=== PATIENT | male | born 1965 | race Caucasian/White ===

== ENCOUNTER 2018-02-11 05:42 | Emergency (ER) | payer BC ==
[2018-02-11] MEDS ORDERED: Ondansetron 4 MG/2 ML SDV IVPUSH ONE ×2 (05:54→06:04)
[2018-02-11] MEDS ORDERED: Sodium Chloride 0.9% 1,000 ML IV ONE (05:54)
[2018-02-11] MEDS ORDERED: diphenhydrAMINE 50 MG/ML SDV IVPUSH ONE (05:57)
--- NOTE | 2018-02-11 06:04 | EDM.PDOC ---
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 Also has some dizziness. Stopped here for some relief. Says he noticed around 1 am today that he wanted to veer off in one direction when he walked, only later did he develop the nausea and vomiting. His only medication is OTC Zantac. Onset: Today Onset Date: 02/11/18 Onset Time: 01:00 Duration: Hour(s):, Getting Worse Location: Reports: Head Quality: Reports: Other (no pain) Severity: Moderate Improves with: Reports: None Worsens with: Reports: None Context: Reports: Other (unknown) Associated Symptoms: Reports: Nausea/Vomiting, Other (dizziness) Treatments [employer]: Reports: Other (see below) (none) - Related Data Allergies Allergy/AdvReac Type Severity Reaction Status Date / Time No Known Allergies Allergy Verified 02/11/18 05:49 Home Meds: Home Meds Ranitidine HCl [Zantac 75] 75 mg PO DAILY 02/11/18 [History] Past Medical History Cardiovascular History: Reports: Hypertension Gastrointestinal History: Reports: GERD Genitourinary History: Reports: Other (See Below) Other Genitourinary History: scrotal injury requiring surgery Social & Family History - Tobacco Use Smoking Status *Q: Never Smoker - Alcohol Use Days Per Week of Alcohol Use: 1 Number of Drinks Per Day: 1 Total Drinks Per Week: 1 Date of Last Drink: 02/09/18 - Recreational Drug Use Recreational Drug Use: No ED ROS GENERAL - Review of Systems Review Of Systems: See Below Constitutional: Reports: Decreased Appetite HEENT: Reports: No Symptoms Respiratory: Reports: No Symptoms Cardiovascular: Reports: No Symptoms GI/Abdominal: Reports: Decreased Appetite, Distension, Hematemesis, Hematochezia , Nausea, Vomiting. Denies: Black Stool, Bloody Stool, Constipation, Diarrhea, Melena : Reports: No Symptoms Musculoskeletal: Reports: No Symptoms Skin: Reports: No Symptoms Neurological: Reports: Dizziness Psychiatric: Reports: No Symptoms ED EXAM, GI/ABD - Physical Exam Exam: See Below Exam Limited By: No Limitations General Appearance: Alert, WD/WN, No Apparent Distress Eyes: Bilateral: Normal Appearance, Nystagmus (nystagmus is subtle, hard to tell direction of the fast component. Seems present also on upward gaze. ) Ears: Normal External Exam, Normal Canal, Hearing Grossly Normal, Normal TMs Nose: Normal Inspection, Normal Mucosa, No Blood Throat/Mouth: Normal Inspection, Normal Oropharynx, Normal Voice, No Airway Compromise Head: Atraumatic, Normocephalic Neck: Normal Inspection Respiratory/Chest: No Respiratory Distress, Lungs Clear, Normal Breath Sounds, No Accessory Muscle Use Cardiovascular: Regular Rate, Rhythm, No Edema GI/Abdominal Exam: Normal Bowel Sounds, Soft, Non-Tender Extremities: Normal Inspection, Normal Range of Motion, Non-Tender Neurological: Alert, Oriented, CN II-XII Intact, Normal Cognition, No Motor/ Sensory Deficits, Other (finger to nose testing is WNL) Psychiatric: Normal Affect (Finger to nose testing OK.), Normal Mood Skin Exam: Warm, Dry, Intact, Normal Color, No Rash, Diaphoretic Lymphatic: No Adenopathy Course - Vital Signs Text/Narrative:: Case discussed with a [place] neurologist @ [facility], MRI suggested, not available this morning. Minimal benefit from Zofran, diphenhydramine, and Ativan(Valium not available). HINTS test seems normal. Concern about cerebellar CVA persists, will transfer to [facility] Last Recorded V/S: Last Vital Signs Temp 35.2 C 02/11/18 05:47 Pulse 71 02/11/18 06:30 Resp 26 H 02/11/18 06:30 BP 133/82 02/11/18 06:30 Pulse Ox 93 L 02/11/18 06:30 - Orders/Labs/Meds Orders: Active Orders 24 hr Category Date Time Status Cardiac Monitoring [RC] .As Directed Care 02/11/18 06:10 Active Brain wo Cont [MR] Stat Exams 02/11/18 06:44 Ordered Lactated Ringers [Ringers, Lactated] 1,000 ml Med 02/11/18 07:00 Active IV ASDIRECTED Medication Orders Lactated Ringer's (Ringers, Lactated) 1,000 mls @ 125 mls/hr IV ASDIRECTED THU Last Admin: 02/11/18 07:14 Dose: 125 mls/hr Labs: Laboratory Tests 02/11/18 Range/Units 06:07 Sodium 139 L (140-148) mmol/L Potassium 3.5 L (3.6-5.2) mmol/L Chloride 103 (100-108) mmol/L Carbon Dioxide 23 (21-32) mmol/L Anion Gap 16.5 H (5.0-14.0) mmol/L BUN 14 (7-18) mg/dL Creatinine 1.0 (0.8-1.3) mg/dL Est Cr Clr Drug Dosing 90.99 mL/min Estimated GFR (MDRD) > 60 (>60) Glucose 158 H (74-106) mg/dL Calcium 8.8 (8.5-10.1) mg/dL Meds: Medications Generic Name Dose Route Start Last Admin Trade Name Freq PRN Reason Stop Dose Admin Lactated Ringer's 1,000 mls @ 125 mls/hr 02/11/18 07:00 02/11/18 07:14 Ringers, Lactated IV 125 mls/hr ASDIRECTED THU Administration Discontinued Medications Generic Name Dose Route Start Last Admin Trade Name Freq PRN Reason Stop Dose Admin Diphenhydramine HCl 25 mg 02/11/18 05:57 02/11/18 06:02 Benadryl IVPUSH 02/11/18 05:58 25 mg ONETIME ONE Administration Sodium Chloride 1,000 mls @ 1,000 mls/hr 02/11/18 05:54 02/11/18 05:59 Normal Saline IV 02/11/18 06:53 1,000 mls/hr .BOLUS ONE Administration Lorazepam 0.5 mg 02/11/18 06:44 02/11/18 06:51 Ativan IVPUSH 02/11/18 06:45 0.5 mg ONETIME ONE Administration Lorazepam Confirm 02/11/18 06:47 02/11/18 06:54 Ativan Administered 02/11/18 06:48 Not Given Dose 2 mg .ROUTE .STK-MED ONE Ondansetron HCl 4 mg 02/11/18 05:54 02/11/18 05:59 Zofran IVPUSH 02/11/18 05:55 4 mg ONETIME ONE Administration Ondansetron HCl 4 mg 02/11/18 06:04 02/11/18 06:08 Zofran IVPUSH 02/11/18 06:05 4 mg ONETIME ONE Administration Departure - Departure Time of Disposition: 07:18 Disposition: DC/Tfer to Acute Hospital 02 Condition: Fair Clinical Impression: Dizziness Nausea and vomiting Qualifiers: Vomiting type: unspecified Vomiting Intractability: intractable Qualified Code( s): R11.2 - Nausea with vomiting, unspecified - Discharge Information Referrals: PCP,None [Primary Care Provider] - Forms: ED Department Discharge - My Orders Last 24 Hours: My Active Orders 02/11/18 06:10 Cardiac Monitoring [RC] .As Directed 02/11/18 06:44 Brain wo Cont [MR] Stat 02/11/18 07:00 Lactated Ringers [Ringers, Lactated] 1,000 ml IV ASDIRECTED - Assessment/Plan Last 24 Hours: My Active Orders 02/11/18 06:10 Cardiac Monitoring [RC] .As Directed 02/11/18 06:44 Brain wo Cont [MR] Stat 02/11/18 07:00 Lactated Ringers [Ringers, Lactated] 1,000 ml IV ASDIRECTED
[2018-02-11] MEDS ORDERED: LORazepam 2 MG/ML SDV IVPUSH ONE (06:44)
[2018-02-11] MEDS ORDERED: LORazepam 2 MG/ML SDV ONE (06:47)
[2018-02-11] MEDS ORDERED: Lactated Ringers 1,000 ML IV SCH (07:00)
== END 2018-02-11 07:37 ==
LOC: JP.ED 05:42
DX: R11.2 Nausea with vomiting, unspecified (principal); R42 Dizziness and giddiness; I10 Essential (primary) hypertension; K21.9 Gastro-esophageal reflux disease without esophagitis; Z79.899 Other long term (current) drug therapy
CPT/HCPCS: 36415; 80048; 96361; 96374; 96375; 99285; J1200; J2060; J2405; J7040; J7120; J7030